=== PATIENT | male | born 1990 | race Caucasian/White ===

== ENCOUNTER 2016-04-03 17:07 | Emergency (ER) | payer SELFPAY ==
[2016-04-03 17:17] VITALS: BP 122/69
[2016-04-03] MEDS ORDERED: IBUPROFEN 800 MG TABLET PO ONE (17:33)
--- NOTE | 2016-04-03 17:33 | ER Document Report ---
ED Medical Screen (RME) - General Stated Complaint: FELL/LEG AND BACK PAIN Mode of Arrival: Ambulatory Information source: Patient Notes: Patient reports right knee has been giving out over the past week. Patient states that knee gave out causing him to fall on the staircase. Patient complains of right knee and right lateral hip pain. TRAVEL OUTSIDE OF THE [place] IN LAST 30 DAYS: No - Related Data Allergies/Adverse Reactions: cefaclor [From Ceclor] Allergy (Verified 04/03/16 17:32) Shellfish * [Shellfish] Allergy (Verified 04/03/16 17:32) tramadol [Tramadol] Allergy (Verified 04/03/16 17:32) Past Medical History Neurological Medical History: Reports: Hx Migraine, Hx Seizures Renal/ Medical History: Reports: Hx Kidney Stones Musculoskeltal Medical History: Reports Hx Musculoskeletal Trauma Psychiatric Medical History: Reports: Hx Attention Deficit Hyperactivity Disorder, Hx Bipolar Disorder Traumatic Medical History: Reports: Hx Fractures Past Surgical History: Reports: Hx Oral Surgery - Immunizations Immunizations up to date: Yes Hx Diphtheria, Pertussis, Tetanus Vaccination: Yes Physical Exam - Vital signs Vitals: Temp Pulse Resp BP 98.1 F 67 18 122/69 04/03/16 17:16 04/03/16 17:16 04/03/16 17:16 04/03/16 17:16 - Extremities General lower extremity: Tender - Right lateral knee, right hip Course - Vital Signs Vital signs: Temp Pulse Resp BP Pulse Ox 98.1 F 67 18 122/69 04/03/16 17:16 04/03/16 17:16 04/03/16 17:16 04/03/16 17:16
--- NOTE | 2016-04-03 19:00 | ER Document Report ---
ED Extremity Problem, Lower - General Chief Complaint: Knee Pain Stated Complaint: FELL/LEG AND BACK PAIN Mode of Arrival: Ambulatory Notes: Patient is having pain in his right knee and right hip after a fall today. Patient says he has "always" had problems with his right knee. He was having such problems as of feeling or sensation of grinding in the knee joint and had an MRI done about 7 years ago but was told that it didn't show any abnormality. He continues to have times when his right knee doesn't feel stable. Today, walking down some steps, his right knee gave out and he fell hitting on the right knee. At the time of impact, pain went up his right thigh into the right hip causing pain there. Since the fall, patient is having pain in the right knee and the right hip and has a limping gait. TRAVEL OUTSIDE OF THE [place] 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 Family History: Arthritis, CAD, CVA, DM, Hyperlipidemia, Hypertension, Malignancy Patient has suicidal ideation: No Patient has homicidal ideation: No Neurological Medical History: Reports: Hx Migraine, Hx Seizures Renal/ Medical History: Reports: Hx Kidney Stones Musculoskeltal Medical History: Reports Hx Musculoskeletal Trauma Psychiatric Medical History: Reports: Hx Attention Deficit Hyperactivity Disorder, Hx Bipolar Disorder Traumatic Medical History: Reports: Hx Fractures Past Surgical History: Reports: Hx Oral Surgery - Immunizations Immunizations up to date: Yes Hx Diphtheria, Pertussis, Tetanus Vaccination: Yes Review of Systems - Review of Systems Notes: REVIEW OF SYSTEMS: CONSTITUTIONAL : Denies fever. EENT: Denies eye, ear, nose or mouth or throat pain or other symptoms. CARDIOVASCULAR: Denies chest pain. RESPIRATORY: Denies cough, chest congestion, or shortness of breath. GASTROINTESTINAL: Denies abdominal pain or nausea, vomiting, or diarrhea. GENITOURINARY: Denies difficulty or painful urinating, urinary frequency, blood in urine. MUSCULOSKELETAL: Denies back or neck pain. See history of present illness regarding right hip pain and right knee pain. SKIN: Denies rash or skin lesions. NEUROLOGICAL: Denies LOC or altered mental status. Denies sensory loss or motor deficits. ALL OTHER SYSTEMS REVIEWED AND NEGATIVE. Physical Exam - Vital signs Vitals: Temp Pulse Resp BP 98.1 F 67 18 122/69 04/03/16 17:16 04/03/16 17:16 04/03/16 17:16 04/03/16 17:16 Interpretation: Normal - Notes Notes: PHYSICAL EXAMINATION: GENERAL: Well-appearing, in no acute distress. Vital signs are normal. Gait is with a limp. HEAD: Atraumatic, normocephalic. NECK: Normal range of motion, supple. LUNGS: Breath sounds clear and equal bilaterally. HEART: Regular rate and rhythm without murmurs. ABDOMEN: Soft, nontender. No guarding or rebound. BACK: No tenderness throughout entire back. EXTREMITIES: Full range of motion of the right hip and right knee passively. No swelling or effusion present. Tender to palpate in the region of the femoral head in the right hip socket and also tender to palpate over the lateral aspect of the right knee, which is where the patient says the point of maximum impact was in the fall today. All 4 major ligamentous structures are intact without significant laxity. Not very tender over the region of the medial or lateral meniscus. NEUROLOGICAL: Normal speech. Walks with a limping gait apparently due to pain. Normal sensory, motor, and reflex exams. Awake, alert, and oriented x3. PSYCH: Normal mood, normal affect. SKIN: Warm, dry, no rashes. Course - Vital Signs Vital signs: Temp Pulse Resp BP Pulse Ox 98.1 F 67 18 122/69 04/03/16 17:16 04/03/16 17:16 04/03/16 17:16 04/03/16 17:16 Discharge - Discharge Clinical Impression: Contusion of right knee Qualifiers: Encounter type: initial encounter Qualified Code(s): S80.01XA - Contusion of right knee, initial encounter Strain of muscle of right hip Qualifiers: Encounter type: initial encounter Qualified Code(s): S76.011A - Strain of muscle, fascia and tendon of right hip, initial encounter Condition: Stable Disposition: HOME, SELF-CARE Additional Instructions: MUSCLE STRAIN right hip: You have strained a muscle -- torn the fibers within the muscle. This often occurs with strenuous exertion, or during an injury that suddenly stretches the muscle. The seriousness of a strain varies. Some strains heal within days, others cause problems for months. X-rays cannot show a muscle strain. X-rays are taken only if symptoms suggest that a fracture could be present. The usual treatment of a muscle strain is rest and ice packs. Sometimes, a sling, splint, or crutches may be necessary to rest the muscle. The muscle can be used again once pain subsides. Severe strains require a special exercise and stretching program to prevent permanent stiffness and disability. Your doctor will advise you if this will be necessary. Call the doctor immediately if pain or swelling becomes severe, or if numbness or discoloration develop. CONTUSION of right knee: Your injury has resulted in a contusion -- a crushing of the deep tissues. No injury to important structures was detected during the physician's exam. Contusions vary in the amount of pain they cause, and in the length of time required for healing. Typically, the area will become bruised, and will remain painful to touch for two or three weeks. However, most patients are back to working and playing within a few days. After the initial period of rest and cold-packs, your symptoms (together with the doctor's recommendations) will determine how rapidly you can get back to full activity. Usually this means "do what feels okay, but don't do things that hurt." If re-examination was recommended, it's important to follow up as instructed. Call the doctor or return any time if pain increases, if swelling becomes severe, if you develop numbness or weakness in an injured extremity, or if any other alarming symptoms occur. SUSPECTED INTERNAL KNEE INJURY: The examiner of your injured knee suspects an internal injury to the cartilage or internal ligaments. This must be further investigated by an investigation specialist. The knee should be protected, ice packed, and elevated while awaiting your follow-up exam by the orthopedist. If there is severe swelling, severe pain, or any new symptoms while awaiting your exam, you should call the orthopedist. (If he/she is unavailable, call us or return for re-examination.) ICE PACKS: Apply ice packs frequently against the painful area. Many different schedules are recommended, such as "20 minutes on, 20 minutes off" or "one hour ice, two hours rest." If you need to work, you may need to go longer between ice treatments. You should plan to have the area ice packed AT LEAST one fourth of the time. The ice should be applied over the wrap, tape, or splint, or over a layer of cloth -- not directly against the skin. Some ice bags have a built-in cloth and can be put directly on the skin. USE OF CRUTCHES: The doctor has recommended that you not bear weight at this time. You will need to use crutches. Adjust the crutches so the tops come to about two inches under the armpit while you are standing upright. Use your hands -- not your armpits -- to support your weight. To get into a chair, support yourself with one crutch on the injured side. Hold the chair with the other hand, then lower yourself while putting all your weight on the good leg. Going up stairs is `good leg up, step up, then bring up crutches and bad leg.' Down stairs is `bad leg and crutches down, then bring good leg down.' If you develop numbness or swelling in an arm or hand, you are using the crutches incorrectly. Return if you are having any problems with the crutches. USE OF UDIQ-HQS-HYLPENA IBUPROFEN: Ibuprofen (Advil, Nuprin, Medipren, Motrin IB) is a medication for fever and pain control. In addition, it has anti- inflammatory effects which may be beneficial, especially in the treatment of injuries. It's best to take ibuprofen with food. Persons with ulcer disease or allergy to aspirin should notify their physician of this before taking ibuprofen. Ibuprofen can be given every four to six hours, for a total of four doses daily. Age Pain or fever dose Antiinflammatory dose 15-adult 400 mg (2 tab) 600 mg (3 tab) ORAL NARCOTIC MEDICATION: You have been given a prescription for pain control. This medication is a narcotic. It's best taken with food, as nausea can result if taken on an empty stomach. Don't operate machinery or drive within six hours of taking this medication. Do not combine this medicine with alcohol, or with any medication which can cause sedation (such as cold tablets or sleeping pills) unless you get permission from the physician. Narcotics tend to cause constipation. If possible, drink plenty of fluids and eat a diet high in fiber and fruits. FOLLOW-UP CARE: If you have been referred to a physician for follow-up care, call the physician s office for an appointment as you were instructed or within the next two days. If you experience worsening or a significant change in your symptoms, notify the physician immediately or return to the Emergency Department at any time for re-evaluation. Prescriptions: Oxycodone HCl/Acetaminophen [Percocet 5-325 mg Tablet] 1 - 2 tab PO Q4H PRN #15 tablet PRN Reason: Referrals: POWER KEATING MD [ACTIVE STAFF] - Follow up in 3-5 days
== END 2016-04-03 19:11 | disposition home or self-care (01) ==
LOC: ER 17:07
DX: S80.01XA Contusion of right knee, initial encounter (principal); S76.011A Strain of muscle, fascia and tendon of right hip, initial encounter; M25.561 Pain in right knee; M25.551 Pain in right hip; W19.XXXA Unspecified fall, initial encounter
CPT/HCPCS: 99283

== ENCOUNTER 2016-06-11 08:49 | Emergency (ER) | payer SELFPAY ==
[2016-06-11 08:57] VITALS: BP 110/60
--- NOTE | 2016-06-11 10:19 | ER Document Report ---
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 No radiculopathy. No saddle anesthesia. No fever or chills. Denies IV drug use. Hurts more when he sits and walks. He works at [employer]. Associated Symptoms: None Exacerbated by: Movement, Walking Relieved by: Denies Similar symptoms previously: Yes Recently seen / treated by doctor: No - ROS ROS below otherwise negative: Yes Systems Reviewed and Negative: Yes All other systems reviewed and negative - REPRODUCTIVE Reproductive: DENIES: : - DERM Skin Color: Normal Past Medical History - General Information source: Patient - Social History Smoking Status: Current Every Day Smoker Chew tobacco use (# tins/day): Yes Frequency of alcohol use: None Drug Abuse: None Lives with: Family Family History: Arthritis, CAD, CVA, DM, Hyperlipidemia, Hypertension, Malignancy Patient has suicidal ideation: No Patient has homicidal ideation: No Neurological Medical History: Reports: Hx Migraine, Hx Seizures Renal/ Medical History: Reports: Hx Kidney Stones. Denies: Hx Peritoneal Dialysis Musculoskeltal Medical History: Reports Hx Musculoskeletal Trauma Psychiatric Medical History: Reports: Hx Attention Deficit Hyperactivity Disorder, Hx Bipolar Disorder Traumatic Medical History: Reports: Hx Fractures Past Surgical History: Reports: Hx Oral Surgery - Immunizations Immunizations up to date: Yes Hx Diphtheria, Pertussis, Tetanus Vaccination: Yes Vertical Provider Document - CONSTITUTIONAL Agree With Documented VS: Yes Exam Limitations: No Limitations - INFECTION CONTROL TRAVEL OUTSIDE OF THE [place] IN LAST 30 DAYS: No - HEENT HEENT: Normocephalic - NECK Neck: Supple - RESPIRATORY Respiratory: Breath Sounds Normal, No Respiratory Distress O2 Sat by Pulse Oximetry: 98 - CARDIOVASCULAR Cardiovascular: Regular Rate, Regular Rhythm - GI/ABDOMEN Gastrointestinal: Abdomen Soft, Abdomen Non-Tender, No Organomegaly - BACK Back: Normal Inspection. negative: CVA Tenderness-Right, CVA Tenderness-Left - MUSCULOSKELETAL/EXTREMETIES Musculoskeletal/Extremeties: MAEW, FROM, Tender - lower lumbar, sacrum - NEURO Level of Consciousness: Awake, Alert Motor/Sensory: No Motor Deficit, No Sensory Deficit Deep Tendon Reflexes: 2+ - Bilateral ankle and patellar - DERM Integumentary: Warm, Dry Course - Vital Signs Vital signs: Temp Pulse Resp BP Pulse Ox 97.4 F 57 L 18 110/60 98 06/11/16 08:56 06/11/16 08:56 06/11/16 08:56 06/11/16 08:56 06/11/16 08:56 Discharge - Discharge Clinical Impression: low back pain Low back strain Qualifiers: Encounter type: initial encounter Qualified Code(s): S39.012A - Strain of muscle, fascia and tendon of lower back, initial encounter Condition: Good Disposition: HOME, SELF-CARE Instructions: Warm Packs ([facility]), Muscle Strain ([facility]), Low Back Pain ([facility]), Anti- Inflammatory Medication ([facility]), Acetaminophen Additional Instructions: warm compress massage stretching exercises to er if worse Please complete the patient satisfaction survey if you get one, and return it.. If you do not receive a survey, then you can go to the [facility] website, [email or web address] and place your comments about your very good care. Thank you very much. It was a pleasure being your medical provider today. Prescriptions: Ibuprofen [Motrin 800 mg Tablet] 800 mg PO Q8HP PRN #30 tablet PRN Reason: Forms: Return to Work Referrals: HEATHER WOOD MD [Primary Care Provider] - Follow up as needed
== END 2016-06-11 10:36 | disposition home or self-care (01) ==
LOC: ER 08:49
DX: S39.012A Strain of muscle, fascia and tendon of lower back, initial encounter (principal); M54.5 Low back pain; F17.210 Nicotine dependence, cigarettes, uncomplicated; Z87.442 Personal history of urinary calculi; X50.0XXA Overexertion from strenuous movement or load, initial encounter
CPT/HCPCS: 99283

== ENCOUNTER 2016-07-16 18:47 | Emergency (ER) | payer SELFPAY | END 2016-07-16 19:28 | disposition left against medical advice (07) | LOC: ER 18:47 | DX: Z53.21 Procedure and treatment not carried out due to patient leaving prior to being seen by health care provider (principal) ==

== ENCOUNTER 2016-07-17 18:55 | Emergency (ER) | payer SELFPAY ==
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
[2016-07-17 21:04] VITALS: BP 130/89
== END 2016-07-17 21:00 | disposition home or self-care (01) ==
LOC: ER 18:55
DX: S20.211A Contusion of right front wall of thorax, initial encounter (principal); R07.81 Pleurodynia; W21.89XA Striking against or struck by other sports equipment, initial encounter; Y93.18 Activity, surfing, windsurfing and boogie boarding; F17.210 Nicotine dependence, cigarettes, uncomplicated
CPT/HCPCS: 99283

== ENCOUNTER 2016-08-20 08:33 | Emergency (ER) | payer SELFPAY ==
[2016-08-20 08:37] VITALS: BP 117/61
--- NOTE | 2016-08-20 09:41 | ER Document Report ---
HPI - HPI Patient complains to provider of: sunburn Onset: Other - saturday Quality of pain: Achy Severity: Mild Pain Level: 2 Context: Patient presents to the emergency department with complaints of sunburn to both legs anteriorly. He reports he was has had the sunburn since Saturday. It hurts so bad he cannot wear pants. He needs to wear pants go to work. 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 Denies: Hx Peritoneal Dialysis Musculoskeltal Medical History: Reports Hx Musculoskeletal Trauma Psychiatric Medical History: Reports: Hx Attention Deficit Hyperactivity Disorder, Hx Bipolar Disorder Traumatic Medical History: Reports: Hx Fractures Past Surgical History: Reports: Hx Oral Surgery - Immunizations Immunizations up to date: Yes Hx Diphtheria, Pertussis, Tetanus Vaccination: Yes Vertical Provider Document - CONSTITUTIONAL Agree With Documented VS: Yes Exam Limitations: No Limitations General Appearance: WD/WN, No Apparent Distress - INFECTION CONTROL TRAVEL OUTSIDE OF THE [place] IN LAST 30 DAYS: No - HEENT HEENT: Atraumatic. negative: Conjuctival Injection - NECK Neck: Normal Inspection, Supple - RESPIRATORY Respiratory: Breath Sounds Normal O2 Sat by Pulse Oximetry: 100 - MUSCULOSKELETAL/EXTREMETIES Musculoskeletal/Extremeties: MAEW, FROM, Tender - Sunburn pain to bilateral thighs anteriorly - NEURO Level of Consciousness: Awake, Alert, Appropriate Motor/Sensory: No Motor Deficit - DERM Integumentary: Warm, Dry Adult Front & Back Diagram: 1 - Edema noted to bilateral thighs no blisters no open wounds no swelling Course - Re-evaluation Re-evalutation: 08/20/16 15:11 Patient instructed on aloe cool packs Tylenol for pain. He was also instructed to follow-up with his primary care provider for recheck. - Vital Signs Vital signs: Temp Pulse Resp BP Pulse Ox 97.8 F 56 L 16 117/61 100 08/20/16 08:35 08/20/16 08:35 08/20/16 08:35 08/20/16 08:35 08/20/16 08:35 Discharge - Discharge Clinical Impression: Sunburn Condition: Serious Disposition: HOME, SELF-CARE Instructions: Sunburn ([facility]) Additional Instructions: *You have been treated for sunburn *Avoid sun, apply cool compresses *Monitor your skin for signs of infection such as increasing pain, redness, swelling, warmth *Follow up with a primary care provider within one week for recheck *Return to ED for signs of infection, worsening condition, changes, needs Forms: Return to Work Referrals: HEATHER WOOD MD [Primary Care Provider] - Follow up in 1 week
== END 2016-08-20 09:40 | disposition home or self-care (01) ==
LOC: ER 08:33
DX: L55.0 Sunburn of first degree (principal); R60.0 Localized edema; F17.210 Nicotine dependence, cigarettes, uncomplicated
CPT/HCPCS: 99282

== ENCOUNTER 2016-08-30 23:26 | Emergency (ER) | payer SELFPAY ==
[2016-08-31] MEDS ORDERED: PROMETHAZINE HCL 25 MG TABLET PO ONE (00:21)
[2016-08-31] MEDS ORDERED: LIDOCAINE 1%/EPINEPHRINE INJ 20 ML VIAL INJ ONE (00:21)
[2016-08-31] MEDS ORDERED: OXYCODONE-ACETAMINOPHEN 5-325 MG TABLET PO ONE (00:21)
--- NOTE | 2016-08-31 00:46 | ER Document Report ---
ED Skin Rash/Insect Bite/Abscs - General Chief Complaint: Abscess Stated Complaint: POSSIBLE INGROWN HAIR/INFECTED Time Seen by Provider: 08/31/16 00:14 Notes: Patient is a 26-year-old male comes emergency department for chief complaint of a painful red area on his left upper groin which has been there for 2 weeks, he states he picked off the head a few days ago but it has not resolved. He denies spreading redness, fever, he states he has had this in the past once before. He denies any daily medications. He denies any other symptoms. TRAVEL OUTSIDE OF THE [place] IN LAST 30 DAYS: No - Related Data Allergies/Adverse Reactions: cefaclor [From Ceclor] Allergy (Verified 08/20/16 08:35) Shellfish * [Shellfish] Allergy (Verified 08/20/16 08:35) tramadol [Tramadol] Allergy (Verified 08/20/16 08:35) Past Medical History - General Information source: Patient - Social History Smoking Status: Never Smoker Chew tobacco use (# tins/day): No Frequency of alcohol use: Occasional Drug Abuse: None Lives with: Family Family History: Arthritis, CAD, CVA, DM, Hyperlipidemia, Hypertension, Malignancy Neurological Medical History: Reports: Hx Migraine, Hx Seizures Renal/ Medical History: Reports: Hx Kidney Stones. Denies: Hx Peritoneal Dialysis Musculoskeltal Medical History: Reports Hx Musculoskeletal Trauma Psychiatric Medical History: Reports: Hx Attention Deficit Hyperactivity Disorder, Hx Bipolar Disorder Traumatic Medical History: Reports: Hx Fractures Past Surgical History: Reports: Hx Oral Surgery - Immunizations Immunizations up to date: Yes Hx Diphtheria, Pertussis, Tetanus Vaccination: Yes Review of Systems - Review of Systems Constitutional: No symptoms reported EENT: No symptoms reported Cardiovascular: No symptoms reported Respiratory: No symptoms reported Gastrointestinal: No symptoms reported Genitourinary: No symptoms reported Male Genitourinary: No symptoms reported Musculoskeletal: No symptoms reported Skin: See HPI Hematologic/Lymphatic: No symptoms reported Neurological/Psychological: No symptoms reported Physical Exam - Vital signs Vitals: Temp Pulse Resp BP Pulse Ox 97.8 F 56 L 20 119/61 97 08/30/16 23:35 08/30/16 23:35 08/30/16 23:35 08/30/16 23:35 08/30/16 23:35 Interpretation: Normal - General General appearance: Appears well, Alert - HEENT Head: Normocephalic, Atraumatic Eyes: Normal Pupils: PERRL - Respiratory Respiratory status: No respiratory distress Chest status: Nontender Breath sounds: Normal Chest palpation: Normal - Cardiovascular Rhythm: Regular Heart sounds: Normal auscultation Murmur: No - Abdominal Inspection: Normal Distension: No distension Bowel sounds: Normal Tenderness: Nontender Organomegaly: No organomegaly - Back Back: Normal, Nontender - Extremities General upper extremity: Normal inspection, Nontender, Normal color, Normal ROM , Normal temperature General lower extremity: Normal inspection, Nontender, Normal color, Normal ROM , Normal temperature, Normal weight bearing. No: Terence's sign - Neurological Neuro grossly intact: Yes Cognition: Normal Orientation: AAOx4 Zo Coma Scale Eye Opening: Spontaneous Zo Coma Scale Verbal: Oriented [place] Coma Scale Motor: Obeys Commands Zo Coma Scale Total: 15 Speech: Normal Motor strength normal: LUE, RUE, LLE, RLE Sensory: Normal - Psychological Associated symptoms: Normal affect, Normal mood - Skin Skin Temperature: Warm Skin Moisture: Dry Skin Color: Normal Skin irregularity: Abscess - There is an abscess in the left suprapubic area, there is a indurated surrounding area with a fluctuant middle head. Minimal surrounding cellulitis noted. Area appears to be coming out of a hair follicle. Course - Re-evaluation Re-evalutation: Exam consistent with folliculitis with secondary abscess and mild surrounding cellulitis. Abscess excised and drained, abscess actually very superficial but did have pus drainage. Patient placed on doxycycline because of folliculitis/ mild cellulitis. Discussed treatment, follow-up, return precautions. Patient states understanding and agreement. - Vital Signs Vital signs: Temp Pulse Resp BP Pulse Ox 97.8 F 50 L 18 115/53 L 97 08/30/16 23:35 08/31/16 02:01 08/31/16 02:01 08/31/16 02:01 08/31/16 02:01 Procedures - Incision and Drainage Left suprapubic area Type: Single Anesthetic type: 1% Lidocaine w/epi mL's of anesthetic: 5 Blade size: 11 I&D procedure: Shurclens applied, Sterile dressing applied Incision Method: Incision made by scalpel Amount/type of drainage: Small amount of purulent drainage Discharge - Discharge Clinical Impression: Abscess Condition: Stable Disposition: HOME, SELF-CARE Additional Instructions: The abscess has been opened to drain, keep absorbing dressing over the site, clean with soap and water at least daily, avoid soaking. \ Take the doxycycline antibiotic as directed (due to suspected folliculitis - hair follicle - infection). Follow up with Primary Care. Return to the ED for any concerning or worsening symptoms - spreading redness, fever, etc. Prescriptions: Doxycycline Hyclate 100 mg PO BID #10 capsule Oxycodone HCl/Acetaminophen [Percocet 5-325 mg Tablet] 1 - 2 tab PO Q4H PRN #10 tablet PRN Reason: Forms: Return to Work Referrals: HEATHER WOOD MD [Primary Care Provider] - Follow up as needed
[2016-08-31] MEDS ORDERED: HYDROCODONE/ACETAMINOPHEN 5-325 MG 6 TAB/DSPK PO PRN (01:32)
[2016-08-31 02:03] VITALS: BP 115/53
== END 2016-08-31 01:50 | disposition home or self-care (01) ==
LOC: ER 23:26
PROC: 0H97XZZ Drainage of Abdomen Skin, External Approach (ICD-10-PCS; principal; 2016-08-30)
DX: L02.211 Cutaneous abscess of abdominal wall (principal); L03.311 Cellulitis of abdominal wall; Z88.1 Allergy status to other antibiotic agents; Z88.5 Allergy status to narcotic agent; Z91.013 Allergy to seafood
CPT/HCPCS: 10060; 99283; J3490

== ENCOUNTER 2017-03-01 14:43 | Emergency (ER) | payer SELFPAY ==
--- NOTE | 2017-03-01 15:35 | ER Document Report ---
HPI - HPI Pain Level: 2 Notes: Patient is a 26-year-old male with no significant past medical history who presents the ED complaining of nasal congestion/discharge and sore throat 1 day , dry nonproductive cough with intermittent wheeze and feeling feverish in the evenings 1-1/2 weeks. Patient states that he is still eating and drinking without difficulties. He is urinating normally and having normal bowel movements. Patient does admit to smoking but denies any IV drug use. He has no other concerns or complaints at this time. He is ambulatory without any worsening symptoms or dyspnea on exertion. Patient states that currently he has no wheezing or trouble breathing. Denies any headache, neck pain, chest pain, palpitations, syncope, shortness of breath, dyspnea, abdominal pain, nausea/vomiting/diarrhea, urinary retention, dysuria, hematuria, or rash. - ROS Notes: REVIEW OF SYSTEMS: CONSTITUTIONAL : see hpi EENT: see hpi CARDIOVASCULAR: Denies chest pain. Denies palpitations or racing or irregular heart beat. Denies ankle edema. RESPIRATORY: see hpi GASTROINTESTINAL: Denies abdominal pain or distention. Denies nausea, vomiting , or diarrhea. Denies blood in vomitus, stools, or per rectum. Denies black, tarry stools. Denies constipation. GENITOURINARY: Denies difficulty urinating, painful urination, burning, frequency, blood in urine, or discharge. MUSCULOSKELETAL: Denies back or neck pain or stiffness. Denies joint pain or swelling. SKIN: Denies rash, lesions or sores. NEUROLOGICAL: Denies dizziness or lightheadedness. Denies headache. Denies seizures. ALL OTHER SYSTEMS REVIEWED AND NEGATIVE. Dictation was performed using [employer] voice recognition software Past Medical History - Social History Smoking Status: Current Every Day Smoker Family History: Arthritis, CAD, CVA, DM, Hyperlipidemia, Hypertension, Malignancy Neurological Medical History: Reports: Hx Migraine, Hx Seizures Renal/ Medical History: Reports: Hx Kidney Stones. Denies: Hx Peritoneal Dialysis Musculoskeltal Medical History: Reports Hx Musculoskeletal Trauma Psychiatric Medical History: Reports: Hx Attention Deficit Hyperactivity Disorder, Hx Bipolar Disorder Traumatic Medical History: Reports: Hx Fractures Past Surgical History: Reports: Hx Oral Surgery - Immunizations Immunizations up to date: Yes Hx Diphtheria, Pertussis, Tetanus Vaccination: Yes Vertical Provider Document - CONSTITUTIONAL Agree With Documented VS: Yes Notes: PHYSICAL EXAMINATION: GENERAL: Well-appearing, well-nourished and in no acute distress. A&Ox4 HEAD: Atraumatic, normocephalic. EYES: Pupils equal round and reactive to light, extraocular movements intact, sclera anicteric, conjunctiva are normal. ENT: EAC clear b/l. TM's intact b/l without erythema, fluid, or perforation. Nares patent and with clear discharge. oropharynx clear without exudates. No tonsilar hypertrophy or erythema. Moist mucous membranes. No sinus tenderness. Uvula midline. No palatine shift. No tongue protrusion. No airway compromise or drooling. NECK: Normal range of motion, supple without lymphadenopathy. No rigidity/ meningismus. LUNGS: Breath sounds clear to auscultation bilaterally and equal. No wheezes rales or rhonchi. HEART: Regular rate and rhythm without murmurs, rubs, gallops. Extremities: No cyanosis, clubbing, or edema b/l. Peripheral pulses 2+. Capillary refill less than 3 seconds. NEUROLOGICAL: Cranial nerves grossly intact. Normal speech, normal gait. Normal sensory, motor exams PSYCH: Normal mood, normal affect. SKIN: Warm, Dry, normal turgor, no rashes or lesions noted. - INFECTION CONTROL TRAVEL OUTSIDE OF THE [place] IN LAST 30 DAYS: No - RESPIRATORY O2 Sat by Pulse Oximetry: 98 Course - Re-evaluation Re-evalutation: 03/01/17 16:15 Patient is an afebrile, well-hydrated, 26-year-old male who presents the ED with acute URI and cough, suspect viral at this time. Vitals are stable. PE is otherwise unremarkable. Chest x-ray was unremarkable for any acute pathology. Influenza was negative. No other imaging or labs warranted at this time based on H&P. Patient's clinical presentation and risk factors are otherwise low risk and benign at this time. Low suspicion for any ACS, PE, pneumothorax, pericarditis, dissection, respiratory compromise, severe dehydration, sepsis, meningitis, or other systemic emergent condition at this time. Patient is aware that his condition can change from initial presentation and he needs to monitor symptoms closely and seek medical attention for any acute changes. I will send him home with a pocket prescription for Zithromax that he may begin with ongoing worsening symptoms 2-3 days. Recommend conservative measures for symptoms. Recheck with your PCM in 3-5 days. Return to the ED with any worsening/concerning symptoms otherwise as reviewed in discharge. Patient is in agreement. - Vital Signs Vital signs: Temp Pulse Resp BP Pulse Ox 98.8 F 65 18 123/71 98 03/01/17 14:47 03/01/17 14:47 03/01/17 14:47 03/01/17 14:47 03/01/17 14:47 Discharge - Discharge Clinical Impression: Acute URI Condition: Stable Disposition: HOME, SELF-CARE Instructions: Upper Respiratory Illness ([facility]) Additional Instructions: Maintain adequate fluid intake Take meds as directed--may being antibiotic with ongoing/worsening symptoms x2- 3 days tylenol/ibuprofen as needed over the counter cold medication as needed for symptoms Humidified air may help for cough F/u: with your PCM in 3-5 days for a recheck Return to the ED with any fever, worsening pain, chest pain, palpitations, syncope, worsening PATEL, neck pain/stiffness, shortness of breath, wheezing, drooling, trouble swallowing/breathing, abdominal pain, n/v/d, rash, or worsening/concerning symptoms otherwise. Prescriptions: Azithromycin [Zithromax 250 mg Tablet] 250 mg PO ASDIR PRN #6 tablet PRN Reason: Forms: Smoking Cessation Education Referrals: [facility] [Provider Group] - Follow up as needed [facility] [Provider Group] - Follow up as needed
--- NOTE | 2017-03-01 15:46 | RADIOLOGY REPORT (SQ) ---
EXAM DESCRIPTION: CHEST PA/LAT COMPLETED DATE/TIME: 03/01/2017 3:34 pm REASON FOR STUDY: cough COMPARISON: 02/08/2010 EXAM PARAMETERS: NUMBER OF VIEWS: two views TECHNIQUE: Digital Frontal and Lateral radiographic views of the chest acquired. RADIATION DOSE: NA LIMITATIONS: none FINDINGS: LUNGS AND PLEURA: No opacities, masses or pneumothorax. No pleural effusion. MEDIASTINUM AND HILAR STRUCTURES: No masses or contour abnormalities. HEART AND VASCULAR STRUCTURES: Heart normal size. No evidence for failure. BONES: No acute findings. HARDWARE: None in the chest. OTHER: No other significant finding. IMPRESSION: NO SIGNIFICANT RADIOGRAPHIC FINDING IN THE CHEST. TECHNICAL DOCUMENTATION: JOB ID: [id number] [employer]- All Rights Reserved
[2017-03-01 16:44] VITALS: BP 108/60
== END 2017-03-01 16:40 | disposition home or self-care (01) ==
LOC: ER 14:43
DX: J06.9 Acute upper respiratory infection, unspecified (principal); R09.81 Nasal congestion; J02.9 Acute pharyngitis, unspecified; R05 Cough; R50.9 Fever, unspecified
CPT/HCPCS: 71020; 87804; 99283

== ENCOUNTER 2017-03-10 14:01 | Emergency (ER) | payer SELFPAY ==
[2017-03-10] MEDS ORDERED: ACYCLOVIR 200 MG CAPSULE PO ONE ×2 (14:44→15:30)
--- NOTE | 2017-03-10 14:47 | ER Document Report ---
ED ENT - General Chief Complaint: Allergy Symptoms Stated Complaint: POSSIBLE ALLERGIC REACTION Time Seen by Provider: 03/10/17 14:36 Mode of Arrival: Ambulatory Information source: Patient Notes: 26-year-old male presents to ED for pain and swelling to the side of his lip. He states he might be having allergic reaction to something. He states he has never had this before it kind of ruiz and itches. He states his face is a little bit swollen this morning but now it is not he took some Tylenol and Benadryl. He states he did have chickenpox as a child but has never had a blister on his mouth before TRAVEL OUTSIDE OF THE [place] IN LAST 30 DAYS: No - HPI Patient complains to provider of: Other - MrJacinda to the left side of his mouth Onset: This morning Onset/Duration: Gradual - Woke up with a blister on his mouth with swelling and pain Quality of pain: Other - Burning itching Severity: Mild Pain Level: 2 Context: Other Location of pain: Other - lip sore Associated symptoms: Other - Listed to the left side of the lip and to the crack between the upper and lower lip Similar symptoms previously: No Recently seen / treated by doctor: Yes - Related Data Allergies/Adverse Reactions: cefaclor [From Ceclor] Allergy (Verified 03/10/17 14:04) Shellfish * [Shellfish] Allergy (Verified 03/10/17 14:04) tramadol [Tramadol] Allergy (Verified 03/10/17 14:04) Past Medical History - General Information source: Patient - Social History Smoking Status: Current Every Day Smoker Cigarette use (# per day): Yes - Half pack per day Chew tobacco use (# tins/day): No Smoking Education Provided: Yes Frequency of alcohol use: None Drug Abuse: None Occupation: None Lives with: Parents Family History: Arthritis, CAD, COPD, CVA, DM, Hyperlipidemia, Hypertension, Malignancy Patient has suicidal ideation: No Patient has homicidal ideation: No - Past Medical History Cardiac Medical History: Reports: None Pulmonary Medical History: Reports: Hx Bronchitis, Hx Pneumonia EENT Medical History: Reports: None Neurological Medical History: Reports: Hx Migraine Endocrine Medical History: Reports: None Renal/ Medical History: Reports: Hx Kidney Stones Malignancy Medical History: Reports None GI Medical History: Reports: None Musculoskeltal Medical History: Reports Hx Musculoskeletal Trauma Skin Medical History: Reports None Psychiatric Medical History: Reports: Hx Attention Deficit Hyperactivity Disorder, Hx Bipolar Disorder Traumatic Medical History: Reports: Hx Fractures - Right hand left hand left wrist left thumb ribs Infectious Medical History: Reports: None Past Surgical History: Reports: Hx Oral Surgery - Immunizations Immunizations up to date: Yes Hx Diphtheria, Pertussis, Tetanus Vaccination: Yes Review of Systems - Review of Systems Constitutional: No symptoms reported EENT: Other - Herpes lesion to left side of lower lip and cracked between the upper and lower lip Cardiovascular: No symptoms reported Respiratory: No symptoms reported Gastrointestinal: No symptoms reported Genitourinary: No symptoms reported Male Genitourinary: No symptoms reported Musculoskeletal: No symptoms reported Skin: No symptoms reported Hematologic/Lymphatic: No symptoms reported Neurological/Psychological: No symptoms reported -: Yes All other systems reviewed and negative Physical Exam - Vital signs Vitals: Temp Pulse Resp BP Pulse Ox 98.6 F 68 18 128/69 H 100 03/10/17 14:07 03/10/17 14:07 03/10/17 14:07 03/10/17 14:07 03/10/17 14:07 Interpretation: Normal - General General appearance: Appears well, Alert - HEENT Head: Normocephalic, Atraumatic Eyes: Normal Pupils: PERRL Ears: Normal External canal: Normal Tympanic membrane: Normal Sinus: Normal Nasal: Normal Mouth/Lips: Lesions - Left lower lip Mucous membranes: Normal Pharynx: Normal Neck: Normal - Respiratory Respiratory status: No respiratory distress Chest status: Nontender Breath sounds: Normal Chest palpation: Normal - Cardiovascular Rhythm: Regular Heart sounds: Normal auscultation Murmur: No - Abdominal Inspection: Normal Distension: No distension Bowel sounds: Normal Tenderness: Nontender Organomegaly: No organomegaly - Back Back: Normal, Nontender - Extremities General upper extremity: Normal inspection, Nontender, Normal color, Normal ROM , Normal temperature General lower extremity: Normal inspection, Nontender, Normal color, Normal ROM , Normal temperature, Normal weight bearing. No: Terence's sign - Neurological Neuro grossly intact: Yes Cognition: Normal Orientation: AAOx4 Zo Coma Scale Eye Opening: Spontaneous [place] Coma Scale Verbal: Oriented [place] Coma Scale Motor: Obeys Commands [place] Coma Scale Total: 15 Speech: Normal Motor strength normal: LUE, RUE, LLE, RLE Sensory: Normal - Psychological Associated symptoms: Normal affect, Normal mood - Skin Skin Temperature: Warm Skin Moisture: Dry Skin Color: Normal Course - Re-evaluation Re-evalutation: 03/10/17 14:57 Patient was treated with 800 mg and acyclovir in the emergency room for his new onset herpes simplex to the left lower lip. He was also instructed to use Abreva for the pain and discomfort. And to follow-up with his primary doctor. - Vital Signs Vital signs: Temp Pulse Resp BP Pulse Ox 98.6 F 68 18 128/69 H 100 03/10/17 14:07 03/10/17 14:07 03/10/17 14:07 03/10/17 14:07 03/10/17 14:07 Discharge - Discharge Clinical Impression: Herpes labialis HTN (hypertension) Qualifiers: Hypertension type: unspecified Qualified Code(s): I10 - Essential (primary) hypertension Condition: Stable Disposition: HOME, SELF-CARE Instructions: Family Physicians / Practices Additional Instructions: Herpes Simplex You have been diagnosed as having a herpes virus infection. The herpes ( "cold sore") virus usually infects the areas around the mouth. However, it can cause infection on any skin surface. It's particularly dangerous if infection occurs in the eye. On the initial infection, herpes blisters erupt over a large area. There is usually fever and aching. This infection takes about 14 days to resolve. After the initial infection, herpes sores can erupt on small areas (usually the lips), then heal in about a week. Sunburn, fever, local irritation, or even emotions can provoke a "fever blister" attack of herpes. Initial herpes infections can be treated with medication if severe. Subsequent attacks are usually given only local care to reduce symptoms; however , the physician may decide to prescribe anti-viral medication if your case warrants it. Call the doctor if you are worsening in any way. Acyclovir Acyclovir (Zovirax) is used to treat infections caused by the Herpes family of viruses. It's available as capsules or ointment. Zovirax is most effective if started at the first sign of the viral outbreak. It can decrease the severity and duration of symptoms. However, it doesn't eliminate the virus from the body completely. If you're prone to repeated outbreaks of herpes, you'll continue to have attacks. Apply ointment with a disposable glove or finger-cot to avoid spreading the virus with your finger. If pills have been prescribed, take them for the full recommended course. Occasionally, mild nausea or headaches may occur. Call the doctor if you develop wheezing, itching, rash, shortness of breath , or lightheadedness. Carmex fever blister ointment or Abreva either one will help with the discomfort. Do not pick at this area do not rub your tongue over it do not touch it. FOLLOW-UP CARE: If you have been referred to a physician for follow-up care, call the physician s office for an appointment as you were instructed or within the next two days. If you experience worsening or a significant change in your symptoms, notify the physician immediately or return to the Emergency Department at any time for re-evaluation. Forms: Elevated Blood Pressure, Smoking Cessation Education
[2017-03-10 15:25] VITALS: BP 127/69
== END 2017-03-10 15:20 | disposition home or self-care (01) ==
LOC: ER 14:01
DX: B00.1 Herpesviral vesicular dermatitis (principal); I10 Essential (primary) hypertension; R22.0 Localized swelling, mass and lump, head; F17.200 Nicotine dependence, unspecified, uncomplicated
CPT/HCPCS: 99283

== ENCOUNTER 2017-08-15 13:20 | Emergency (ER) | payer SELFPAY ==
[2017-08-15] MEDS ORDERED: IBUPROFEN 800 MG TABLET PO ONE (13:48)
[2017-08-15] MEDS ORDERED: PSEUDOEPHEDRINE HCL 30 MG TABLET PO ONE (13:49)
--- NOTE | 2017-08-15 13:51 | ER Document Report ---
HPI - HPI Patient complains to provider of: cough Onset: Other - 5 days Onset/Duration: Persistent Pain Level: 0 Context: Patient reports having a cough for the past 5 days. Patient reports a fever of 102.7 today. Patient denies taking any antipyretic medication today. Patient does complain of cough, sore throat and congestion. Patient states that after his symptoms started he called a telemedicine provider 4 days ago and was placed on a [employer]. Patient has finished a [employer] and complains of continued symptoms. Associated Symptoms: Nonproductive cough, Fever, Rhinnorhea, Sore throat. denies: Earache, Headache, Vomiting Exacerbated by: Denies Relieved by: Denies Similar symptoms previously: No Recently seen / treated by doctor: Yes - ROS ROS below otherwise negative: Yes Systems Reviewed and Negative: Yes All other systems reviewed and negative - CONSTITUTIONAL Constitutional: REPORTS: Fever - EENT EENT: REPORTS: Sore Throat, Nasal Drainage-Clear, Congestion - CARDIOVASCULAR Cardiovascular: DENIES: Chest pain - RESPIRATORY Respiratory: REPORTS: Coughing. DENIES: Trouble Breathing - GASTROINTESTINAL Gastrointestinal: DENIES: Patient vomiting, Diarrhea - MUSCULOSKELETAL Musculoskeletal: DENIES: Back Pain, Neck Pain - DERM Skin Color: Normal Skin Problems: None Past Medical History - General Information source: Patient - Social History Smoking Status: Current Every Day Smoker Smoking Education Provided: Yes Frequency of alcohol use: None Drug Abuse: None Occupation: [employer] Lives with: Family Family History: Arthritis, CAD, COPD, CVA, DM, Hyperlipidemia, Hypertension, Malignancy Pulmonary Medical History: Reports: Hx Bronchitis, Hx Pneumonia Neurological Medical History: Reports: Hx Migraine Renal/ Medical History: Reports: Hx Kidney Stones. Denies: Hx Peritoneal Dialysis Musculoskeltal Medical History: Reports Hx Musculoskeletal Trauma Psychiatric Medical History: Reports: Hx Attention Deficit Hyperactivity Disorder, Hx Bipolar Disorder Traumatic Medical History: Reports: Hx Fractures - Right hand left hand left wrist left thumb ribs Past Surgical History: Reports: Hx Oral Surgery - Immunizations Immunizations up to date: Yes Hx Diphtheria, Pertussis, Tetanus Vaccination: Yes Vertical Provider Document - CONSTITUTIONAL Agree With Documented VS: Yes Exam Limitations: No Limitations General Appearance: WD/WN, No Apparent Distress - INFECTION CONTROL TRAVEL OUTSIDE OF THE [place] IN LAST 30 DAYS: No - HEENT HEENT: Atraumatic, Normocephalic, Pharyngeal Tenderness, Pharyngeal Erythema. negative: Pharyngeal Exudate, Tympanic Membrane Red, Tympanic Membrane Bulging Notes: Clear rhinorrhea, swollen nasal mucosa - NECK Neck: Normal Inspection, Supple. negative: Lymphadenopathy-Left, Lymphadenopathy-Right - RESPIRATORY Respiratory: No Respiratory Distress, Chest Non-Tender, Rhonchi - CARDIOVASCULAR Cardiovascular: Regular Rate, Regular Rhythm, No Murmur - GI/ABDOMEN Gastrointestinal: Abdomen Soft - BACK Back: Normal Inspection - MUSCULOSKELETAL/EXTREMETIES Musculoskeletal/Extremeties: ERICA JARRETT - NEURO Level of Consciousness: Awake, Alert, Appropriate Motor/Sensory: No Motor Deficit - DERM Integumentary: Warm, Dry, No Rash Course - Re-evaluation Re-evalutation: 08/15/17 Respirations even and unlabored, no tachypnea. Patient without any findings concerning for pneumonia on chest x-ray, patient afebrile here. Strep test negative. Patient encouraged to follow-up with primary doctor for further evaluation. Discussed worsening symptoms that patient should return immediately for. - Vital Signs Vital signs: Temp Pulse Resp BP Pulse Ox 99.5 F 89 20 133/79 H 95 08/15/17 13:23 08/15/17 13:23 08/15/17 13:23 08/15/17 13:23 08/15/17 13:23 - Laboratory Laboratory results interpreted by me: 08/15/17 14:48 Labs- Entire Visit 08/15/17 13:57 Group A Strep Rapid NEGATIVE - Diagnostic Test Radiology reviewed: Reports reviewed Discharge - Discharge Clinical Impression: Sore throat Upper respiratory infection Qualifiers: URI type: unspecified URI Qualified Code(s): J06.9 - Acute upper respiratory infection, unspecified Condition: Stable Disposition: HOME, SELF-CARE Instructions: Upper Respiratory Illness ([facility]) Additional Instructions: Return immediately for any new or worsening symptoms Followup with your primary care provider, call tomorrow to make a followup appointment Prescriptions: Albuterol Sulfate [Ventolin Hfa] 2 puff IH Q4HP PRN #17 gm PRN Reason: Guaifenesin/Pseudoephedrne HCl [Mucinex D ER Tablet] 1 each PO Q12 PRN #12 tab.er.12h PRN Reason: Naproxen [Naprosyn 250 Nmg Tablet] 1 tab PO BID #14 tablet Forms: Smoking Cessation Education, Return to Work Referrals: HEATHER WOOD MD [ACTIVE STAFF] - Follow up tomorrow
--- NOTE | 2017-08-15 14:32 | RADIOLOGY REPORT (SQ) ---
EXAM DESCRIPTION: CHEST 2 VIEWS COMPLETED DATE/TIME: 08/15/2017 2:15 pm REASON FOR STUDY: fever, cough COMPARISON: 03/01/2017 EXAM PARAMETERS: NUMBER OF VIEWS: two views TECHNIQUE: Digital Frontal and Lateral radiographic views of the chest acquired. RADIATION DOSE: NA LIMITATIONS: none FINDINGS: LUNGS AND PLEURA: No opacities, masses or pneumothorax. No pleural effusion. MEDIASTINUM AND HILAR STRUCTURES: No masses or contour abnormalities. HEART AND VASCULAR STRUCTURES: Heart normal size. No evidence for failure. BONES: No acute findings. HARDWARE: None in the chest. OTHER: No other significant finding. IMPRESSION: NO ACUTE RADIOGRAPHIC FINDING IN THE CHEST. TECHNICAL DOCUMENTATION: JOB ID: [id number] [employer]- All Rights Reserved Reading location - IP/workstation name: [email or web address]
[2017-08-15 15:01] VITALS: BP 120/77
== END 2017-08-15 15:01 | disposition home or self-care (01) ==
LOC: ER 13:20
DX: J06.9 Acute upper respiratory infection, unspecified (principal); J02.9 Acute pharyngitis, unspecified; R05 Cough; R50.9 Fever, unspecified; J34.89 Other specified disorders of nose and nasal sinuses; F17.200 Nicotine dependence, unspecified, uncomplicated; Z87.01 Personal history of pneumonia (recurrent)
CPT/HCPCS: 71046; 87070; 87077; 87880; 99284

== ENCOUNTER 2017-09-27 00:59 | Emergency (ER) | payer OTHER ==
--- NOTE | 2017-09-27 01:56 | RADIOLOGY REPORT (SQ) ---
EXAM DESCRIPTION: XR FOREARM 2 VIEWS COMPLETED DATE/TME: 09/27/2017 01:08 CLINICAL HISTORY: 27 years, Male, fell caught self with handand caring 250 lbs COMPARISON: None. FINDINGS: 2 views of the right forearm. No acute fracture or dislocation. Normal osseous mineralization. No radiopaque foreign bodies. IMPRESSION: No acute fracture or dislocation. 2010 [facility] [employer]- All Rights Reserved
--- NOTE | 2017-09-27 01:58 | RADIOLOGY REPORT (SQ) ---
EXAM DESCRIPTION: XR HAND 3 OR MORE VIEWS COMPLETED DATE/TME: 09/27/2017 01:08 CLINICAL HISTORY: 27 years, Male, fell caught self with handand caring 250 lbs COMPARISON: None. FINDINGS: 3 views of the right hand. No acute fracture or dislocation. Normal osseous mineralization. No radiopaque foreign bodies. IMPRESSION: No acute fracture or dislocation. 2011 [facility] [employer]- All Rights Reserved
--- NOTE | 2017-09-27 01:58 | RADIOLOGY REPORT (SQ) ---
EXAM DESCRIPTION: XR WRIST 3 OR MORE VIEWS BILATERAL COMPLETED DATE/TME: 09/27/2017 01:08 CLINICAL HISTORY: 27 years, Male, fell caught self with handand caring 250 lbs COMPARISON: 11/24/2011 FINDINGS: 3 views of the right wrist. No acute fracture or dislocation. Normal osseous mineralization. No radiopaque foreign bodies. The radius, capitate, lunate have normal alignment. IMPRESSION: No acute fracture or dislocation. 2010 [employer]- All Rights Reserved
[2017-09-27] MEDS ORDERED: IBUPROFEN 600 MG TABLET PO ONE (02:19)
[2017-09-27] MEDS ORDERED: HYDROCODONE/ACETAMINOPHEN 5-325 MG (6 TAB/ER DISP) PO PRN (02:25)
--- NOTE | 2017-09-27 02:30 | ER Document Report ---
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 Patient has not taken any medications. Patient denies any other complaints. TRAVEL OUTSIDE OF THE [place] IN LAST 30 DAYS: No - Related Data Allergies/Adverse Reactions: cefaclor [From Ceclor] Allergy (Verified 08/15/17 13:21) Shellfish * [Shellfish] Allergy (Verified 08/15/17 13:21) tramadol [Tramadol] Allergy (Verified 08/15/17 13:21) Past Medical History - General Information source: Patient - Social History Smoking Status: Never Smoker Frequency of alcohol use: None Drug Abuse: None Lives with: Family Family History: Arthritis, CAD, COPD, CVA, DM, Hyperlipidemia, Hypertension, Malignancy Patient has suicidal ideation: No Patient has homicidal ideation: No Pulmonary Medical History: Reports: Hx Bronchitis, Hx Pneumonia Neurological Medical History: Reports: Hx Migraine, Hx Seizures Renal/ Medical History: Reports: Hx Kidney Stones. Denies: Hx Peritoneal Dialysis Musculoskeletal Medical History: Reports Hx Musculoskeletal Trauma Psychiatric Medical History: Reports: Hx Attention Deficit Hyperactivity Disorder, Hx Bipolar Disorder Traumatic Medical History: Reports: Hx Fractures - Right hand left hand left wrist left thumb ribs Past Surgical History: Reports: Hx Oral Surgery - Immunizations Immunizations up to date: Yes Hx Diphtheria, Pertussis, Tetanus Vaccination: Yes Review of Systems - Review of Systems Constitutional: No symptoms reported EENT: No symptoms reported Cardiovascular: No symptoms reported Respiratory: No symptoms reported Gastrointestinal: No symptoms reported Genitourinary: No symptoms reported Male Genitourinary: No symptoms reported Musculoskeletal: See HPI Skin: No symptoms reported Hematologic/Lymphatic: No symptoms reported Neurological/Psychological: No symptoms reported Physical Exam - Vital signs Vitals: Temp Pulse Resp BP Pulse Ox 98.2 F 51 L 18 118/76 100 09/27/17 01:00 09/27/17 01:00 09/27/17 01:00 09/27/17 01:00 09/27/17 01:00 - Notes Notes: PHYSICAL EXAMINATION: GENERAL: Well-appearing, well-nourished and in no acute distress. HEAD: Atraumatic, normocephalic. EYES: Pupils equal round and reactive to light, extraocular movements intact, sclera anicteric, conjunctiva are normal. LUNGS: Breath sounds clear to auscultation bilaterally and equal. No wheezes rales or rhonchi. HEART: Regular rate and rhythm without murmurs EXTREMITIES: Swelling noted to right wrist, tenderness with movement. Pulses present and bounding, cap refill less than 3 seconds, normal motor and sensation. NEUROLOGICAL: No focal neurological deficits. Moves all extremities spontaneously and on command. PSYCH: Normal mood, normal affect. SKIN: Warm, Dry, normal turgor, no rashes or lesions noted. Course - Re-evaluation Re-evalutation: Right wrist xray is negative for any acute findings. Physical exam consistent with wrist sprain. Will place patient in wrist splint and arm sling for comfort. Patient will follow up with workman comp provider. Instructed to ice , elevate and take ibuprofen for pain. Return for any further concerns. - Vital Signs Vital signs: Temp Pulse Resp BP Pulse Ox 97.3 F 58 L 17 118/77 96 09/27/17 02:37 09/27/17 02:37 09/27/17 02:37 09/27/17 02:37 09/27/17 02:37 Discharge - Discharge Clinical Impression: Wrist injury Qualifiers: Encounter type: initial encounter Laterality: right Qualified Code(s): S69.91XA - Unspecified injury of right wrist, hand and finger(s), initial encounter Condition: Stable Disposition: HOME, SELF-CARE Additional Instructions: SPRAIN: Your injury is a sprain. A sprain results from stretching or tearing of the ligaments, usually from a twisting injury. The ligaments will require time and protection in order to heal properly. Many sprains are quite disabling and should be taken seriously. The usual initial treatment of sprains is cold packs, elevation, and rest of the injured area. Your physician has assessed the seriousness of your ligament injury, and has outlined a treatment plan. Understand that this treatment may change, depending on how you progress. If a re-examination was recommended, it is important that you follow up as instructed. Call the doctor any time if there is severe pain, numbness, or loss of function in the injured area. ICE & ELEVATION: Apply ice packs frequently against the painful area. Many different schedules are recommended, such as "20 minutes on, 20 minutes off" or "one hour ice, two hours rest." If you need to work, you may need to go longer between ice treatments. You should plan to have the area ice packed AT LEAST one- fourth of the time. The ice should be applied over the wrap, tape, or splint, or over a layer of cloth -- not directly against the skin. Some ice bags have a built-in cloth and can be put directly on the skin. Your injured part should be elevated as much as possible over the next 48 hours. Try to keep the injury above the level of the heart. Avoid use of the injured area. Elevation and rest will decrease the swelling. USE OF [id number] IBUPROFEN: Ibuprofen (Advil, Nuprin, Medipren, Motrin IB) is a medication for fever and pain control. In addition, it has anti- inflammatory effects which may be beneficial, especially in the treatment of injuries. It's best to take ibuprofen with food. Persons with ulcer disease or allergy to aspirin should notify their physician of this before taking ibuprofen. Ibuprofen can be given every four to six hours, for a total of four doses daily. Take ibuprofen 600 mg every 6 hours for the next 2-3 days regardless if you have pain. This will help reduce the inflammation at the area of injury. ORAL NARCOTIC MEDICATION: You have been given a prescription for pain control. This medication is a narcotic. It's best taken with food, as nausea can result if taken on an empty stomach. Don't operate machinery or drive within six hours of taking this medication. Do not combine this medicine with alcohol, or with any medication which can cause sedation (such as cold tablets or sleeping pills) unless you get permission from the physician. Narcotics tend to cause constipation. If possible, drink plenty of fluids and eat a diet high in fiber and fruits. Please be aware that prescription narcotics also have the potential for abuse. People become addicted to these medications because of the general sense of wellbeing that they induce. This feeling along with a significant reduction in tension, anxiety, and aggression provides a stimulating seductive quality to these drugs. Once your pain is under control, we encourage you to discard your unused narcotics. FOLLOW-UP CARE: If you have been referred to a physician for follow-up care, call the physician s office for an appointment as you were instructed or within the next two days. If you experience worsening or a significant change in your symptoms, notify the physician immediately or return to the Emergency Department at any time for re-evaluation. Your x-rays today were normal and had no acute fractures. You most likely suffered a strain. Please follow-up with your Workmen's Comp. provider for official clearance back to work. Prescriptions: Ibuprofen 600 mg PO QID #30 tablet Forms: Special Work Note
[2017-09-27 02:45] VITALS: BP 118/77
== END 2017-09-27 02:42 | disposition home or self-care (01) ==
LOC: ER 00:59
DX: S69.91XA Unspecified injury of right wrist, hand and finger(s), initial encounter (principal); M25.531 Pain in right wrist; Z91.013 Allergy to seafood; Z88.8 Allergy status to other drugs, medicaments and biological substances; Z87.442 Personal history of urinary calculi; W19.XXXA Unspecified fall, initial encounter; Y93.89 Activity, other specified; Y92.89 Other specified places as the place of occurrence of the external cause; Y99.9 Unspecified external cause status
CPT/HCPCS: 73090; 73130; 73110; L3908; 99283; L3650

== ENCOUNTER 2018-02-23 18:54 | Emergency (ER) | payer SELFPAY ==
--- NOTE | 2018-02-23 20:07 | ER Document Report ---
HPI - HPI Patient complains to provider of: cough, fever Time Seen by Provider: 02/23/18 19:37 Pain Level: 1 Context: Patient is a 27-year-old male who comes to the emergency department for chief complaint of cough, runny nose, fever. He states symptoms started 3 days ago. He states cough is getting worse and he has 2 episodes today where he coughed until he vomited. He does smoke. He denies hemoptysis, hematemesis, he denies sputum production outside of the vomiting. He denies headache, painful sinuses , neck pain or stiffness, purulent nasal discharge, sore throat. He has not had influenza vaccine this year. He denies any daily prescribed medications. He states he has been exposed to sick people at work. - NEURO Neurology: REPORTS: Headache - RESPIRATORY Respiratory: REPORTS: Coughing Past Medical History - General Information source: Patient - Social History Smoking Status: Current Every Day Smoker Smoking Education Provided: Yes - <3 min Drug Abuse: None Lives with: Spouse/Significant other Family History: Arthritis, CAD, COPD, CVA, DM, Hyperlipidemia, Hypertension, Malignancy Patient has suicidal ideation: No Patient has homicidal ideation: No Pulmonary Medical History: Reports: Hx Bronchitis, Hx Pneumonia Neurological Medical History: Reports: Hx Migraine, Hx Seizures Renal/ Medical History: Reports: Hx Kidney Stones. Denies: Hx Peritoneal Dialysis Musculoskeletal Medical History: Reports Hx Musculoskeletal Trauma Psychiatric Medical History: Reports: Hx Attention Deficit Hyperactivity Disorder, Hx Bipolar Disorder Traumatic Medical History: Reports: Hx Fractures - Right hand left hand left wrist left thumb ribs Past Surgical History: Reports: Hx Oral Surgery - Immunizations Immunizations up to date: Yes Hx Diphtheria, Pertussis, Tetanus Vaccination: Yes Vertical Provider Document - CONSTITUTIONAL General Appearance: WD/WN, No Apparent Distress - INFECTION CONTROL TRAVEL OUTSIDE OF THE [place] IN LAST 30 DAYS: No - HEENT HEENT: Atraumatic, Normocephalic. negative: Normal ENT Exam - Left tympanic membrane with erythema and loss of light reflex but no purulent effusion and no bulging. Minimal erythema of the posterior pharynx with patent airway and normal uvula. Unremarkable oropharyngeal exam otherwise. Unremarkable ENT exam otherwise including nontender sinuses. - NECK Neck: Normal Inspection. negative: Lymphadenopathy-Left, Lymphadenopathy-Right - RESPIRATORY Respiratory: Breath Sounds Normal, No Respiratory Distress. negative: Wheezing - No wheezing, tachypnea, labored breathing - CARDIOVASCULAR Cardiovascular: Regular Rate, Regular Rhythm - GI/ABDOMEN Gastrointestinal: Abdomen Soft, Abdomen Non-Tender - BACK Back: Normal Inspection - MUSCULOSKELETAL/EXTREMETIES Musculoskeletal/Extremeties: MAEW, FROM, Non-Tender - NEURO Level of Consciousness: Awake, Alert, Appropriate - DERM Integumentary: Warm, Dry, No Rash Course - Re-evaluation Re-evalutation: Chest x-ray does not show developing pneumonia. Influenza test is negative. Evaluation is most consistent with viral upper respiratory infection/ bronchitis. Patient is a smoker. Because of his reported worsening cough symptoms, after discussion decision was made to provide him with steroid treatment. Discussed that this could last for a while, discussed worsening symptoms to return for, discussed primary care follow-up, discussed smoking cessation. Patient states understanding and agreement. - Vital Signs Vital signs: Temp Pulse Resp BP Pulse Ox 98.5 F 65 20 127/80 H 96 02/23/18 19:02 02/23/18 19:02 02/23/18 19:02 02/23/18 19:02 02/23/18 19:02 Discharge - Discharge Clinical Impression: Cough, Sinus congestion Upper respiratory infection Qualifiers: URI type: unspecified URI Qualified Code(s): J06.9 - Acute upper respiratory infection, unspecified Condition: Stable Disposition: HOME, SELF-CARE Additional Instructions: Your chest x-ray does not show any concerning abnormality, your influenza test is negative. Your evaluation is consistent with bronchitis, he has a viral upper respiratory infection. Take prednisone as prescribed, stop smoking. Avoid carbohydrate foods while taking prednisone as this will cause weight gain. I recommend Flonase nasal spray, Sudafed nasal decongestant, you can do Mucinex for chest decongestion, you can take [id number] antihistamine such as Benadryl to help at night, Tylenol for pain, etc. Follow-up with primary care. Return if you worsen including spiking fever, difficulty breathing, or any other concerning worsening symptoms. Prescriptions: Prednisone [Deltasone 20 mg Tablet] 2 tab PO DAILY 5 Days #10 tablet Forms: Return to Work
--- NOTE | 2018-02-23 20:21 | RADIOLOGY REPORT (SQ) ---
EXAM DESCRIPTION: CHEST 2 VIEWS COMPLETED DATE/TIME: 02/23/2018 8:14 pm REASON FOR STUDY: fevers, worsening cough x3 days COMPARISON: 08/15/2017 EXAM PARAMETERS: NUMBER OF VIEWS: two views TECHNIQUE: Digital Frontal and Lateral radiographic views of the chest acquired. RADIATION DOSE: NA LIMITATIONS: none FINDINGS: LUNGS AND PLEURA: No opacities, masses or pneumothorax. No pleural effusion. MEDIASTINUM AND HILAR STRUCTURES: No masses or contour abnormalities. HEART AND VASCULAR STRUCTURES: Heart normal size. No evidence for failure. BONES: No acute findings. HARDWARE: None in the chest. OTHER: No other significant finding. IMPRESSION: NO ACUTE RADIOGRAPHIC FINDING IN THE CHEST. TECHNICAL DOCUMENTATION: JOB ID: [id number] [employer]- All Rights Reserved Reading location - IP/workstation name: [email or web address]
[2018-02-23 21:05] LABS: A TYPE INFLUENZA AG NEGATIVE (NEGATIVE); B INFLUENZA AG NEGATIVE (NEGATIVE)
[2018-02-23] MEDS ORDERED: PREDNISONE 20 MG TABLET PO ONE (21:20)
[2018-02-23 21:38] VITALS: BP 124/76
== END 2018-02-23 21:38 | disposition home or self-care (01) ==
LOC: ER 18:54
DX: J06.9 Acute upper respiratory infection, unspecified (principal); R05 Cough; R09.81 Nasal congestion; R50.9 Fever, unspecified; R09.89 Other specified symptoms and signs involving the circulatory and respiratory systems; R11.10 Vomiting, unspecified; F17.200 Nicotine dependence, unspecified, uncomplicated
CPT/HCPCS: 99284; 87804; 71046; J7512

== ENCOUNTER 2019-02-02 08:56 | Emergency (ER) | payer SELFPAY ==
[2019-02-02 09:01] VITALS: BP 123/64
[2019-02-02] MEDS ORDERED: IPRATROPIUM/ALBUTEROL 0.5-2.5 MG/3 ML AMPUL NEB ONE (09:13)
--- NOTE | 2019-02-02 09:14 | ER Document Report ---
HPI - HPI Time Seen by Provider: 02/02/19 09:08 Pain Level: Denies Context: Patient is a 28-year-old male who presents the emergency department with a chief complaint of a cough. Patient states that his cough started about a month ago. Patient states that the cough went away a little bit, but a few days ago he continued to have a cough and started to have a fever. Patient took Mucinex DM and almost passed out at work. Patient states that he is a current everyday smoker and smokes about a pack a day. - CONSTITUTIONAL Constitutional: DENIES: Fever, Chills - EENT EENT: REPORTS: Nasal Drainage-Clear, Nasal Drainage-Purulent, Congestion. DENIES: Sore Throat, Ear Pain, Eye problems - NEURO Neurology: DENIES: Headache - CARDIOVASCULAR Cardiovascular: DENIES: Chest pain - RESPIRATORY Respiratory: REPORTS: Coughing - GASTROINTESTINAL Gastrointestinal: DENIES: Abdominal Pain, Nausea, Patient vomiting - REPRODUCTIVE Reproductive: DENIES: : - DERM Skin Color: Normal Skin Problems: None Past Medical History - Social History Smoking Status: Current Every Day Smoker Chew tobacco use (# tins/day): No Frequency of alcohol use: None Drug Abuse: None Family History: Arthritis, CAD, COPD, CVA, DM, Hyperlipidemia, Hypertension, Malignancy Patient has suicidal ideation: No Patient has homicidal ideation: No Pulmonary Medical History: Reports: Hx Bronchitis, Hx Pneumonia Neurological Medical History: Reports: Hx Migraine, Hx Seizures Renal/ Medical History: Reports: Hx Kidney Stones. Denies: Hx Peritoneal Dialysis Musculoskeletal Medical History: Reports Hx Musculoskeletal Trauma Psychiatric Medical History: Reports: Hx Attention Deficit Hyperactivity Disorder, Hx Bipolar Disorder Traumatic Medical History: Reports: Hx Fractures - Right hand left hand left wrist left thumb ribs Past Surgical History: Reports: Hx Oral Surgery - Immunizations Immunizations up to date: Yes Hx Diphtheria, Pertussis, Tetanus Vaccination: Yes Vertical Provider Document - CONSTITUTIONAL Agree With Documented VS: Yes Exam Limitations: No Limitations General Appearance: No Apparent Distress - INFECTION CONTROL TRAVEL OUTSIDE OF THE [place] IN LAST 30 DAYS: No - HEENT HEENT: Atraumatic, Normocephalic, PERRLA. negative: Pharyngeal Tenderness, Pharyngeal Erythema, Tympanic Membrane Red, Tympanic Membrane Bulging - NECK Neck: Normal Inspection - RESPIRATORY Respiratory: Breath Sounds Normal, No Respiratory Distress - CARDIOVASCULAR Cardiovascular: Regular Rate, Regular Rhythm Pulses: Normal: Radial - MUSCULOSKELETAL/EXTREMETIES Musculoskeletal/Extremeties: FROM - NEURO Level of Consciousness: Awake, Alert, Appropriate Motor/Sensory: No Motor Deficit, No Sensory Deficit - DERM Integumentary: Warm, Dry, No Rash Course - Re-evaluation Re-evalutation: 02/02/19 10:00 X-ray shows chronic interstitial minor marking markings in the lungs, may be due to chronic smoking. No pneumonia noted. Patient's chest x-ray is negative for any acute findings as per radiologist. Patient's vital signs are stable. Very low suspicion for pneumonia, or any life-threatening etiology at this time. Patient will be sent home with an albuterol inhaler. I instructed him to make sure that he takes 4-6 1 to 2 puffs every 4-6 hours as needed. He will also be started on guaifenesin and cetirizine. He will follow-up with [facility] and or [facility]. He is in agreement with this plan. Follow-up precautions were given. Verbal discharge instructions were given to the patient. They verbalized understanding. They are stable for discharge. - Vital Signs Vital signs: Temp Pulse Resp BP Pulse Ox 98.4 F 55 L 20 123/64 95 02/02/19 09:00 02/02/19 09:00 02/02/19 09:00 02/02/19 09:00 02/02/19 09:00 Discharge - Discharge Clinical Impression: Cough Condition: Stable Disposition: HOME, SELF-CARE Additional Instructions: You are seen today in the emergency department for a cough. Chest her chest x- ray was normal. Please follow-up with 1 of the clinics below in regards to your cough. Please continue ibuprofen 600 mg and acetaminophen 1000 mg every 6 hours for any fever. Please continue guaifenesin. Make sure you get plenty of rest and drink plenty of fluids. Return if your symptoms are worse. You are being sent home with an albuterol inhaler. Take 1 puff every 4-6 hours as needed for shortness of breath. Prescriptions: Cetirizine HCl [All Day Allergy] 10 mg PO DAILY #30 tablet Guaifenesin [Mucinex] 1,200 mg PO BID #14 tab.[id number] Forms: Return to Work Referrals: [facility] [Provider Group] - Follow up as needed [facility] [Provider Group] - Follow up as needed
--- NOTE | 2019-02-02 09:40 | RADIOLOGY REPORT (SQ) ---
EXAM DESCRIPTION: CHEST 2 VIEWS COMPLETED DATE/TIME: 02/02/2019 9:27 am REASON FOR STUDY: cough/fever COMPARISON: 02/23/2018 and 08/15/2017 EXAM PARAMETERS: NUMBER OF VIEWS: two views TECHNIQUE: Digital Frontal and Lateral radiographic views of the chest acquired. RADIATION DOSE: NA LIMITATIONS: none FINDINGS: LUNGS AND PLEURA: Mild prominence of the interstitial markings in the lungs, appear to re present chronic findings. No acute pulmonary consolidation. No evidence of pneumothorax or pleural effusion. MEDIASTINUM AND HILAR STRUCTURES: No masses or contour abnormalities. HEART AND VASCULAR STRUCTURES: Heart normal size. No evidence for failure. BONES: No acute findings. HARDWARE: None in the chest. OTHER: No other significant finding. IMPRESSION: 1. As on the prior examinations dated 02/23/2018 and 08/15/2017, chronic mild prominence of the interstitial markings in the lungs. No acute pulmonary consolidation. TECHNICAL DOCUMENTATION: JOB ID: [id number] [employer]- All Rights Reserved Reading location - IP/workstation name: [email or web address]
[2019-02-02] MEDS ORDERED: ALBUTEROL SULFATE HFA (90 MCG/PUFF) 8 GM MDI (1 MDI/ER DISP) IH ONE (09:59)
[2019-02-02] MEDS ORDERED: CETIRIZINE 10 MG TABLET PO ONE (10:16)
[2019-02-02] MEDS ORDERED: GUAIFENESIN 600 MG TABLET.SA PO ONE (10:16)
== END 2019-02-02 10:27 | disposition home or self-care (01) ==
LOC: ER 08:56
DX: R05 Cough (principal); R50.9 Fever, unspecified; R55 Syncope and collapse; F17.210 Nicotine dependence, cigarettes, uncomplicated; Z87.442 Personal history of urinary calculi
CPT/HCPCS: 71046; J3490; J7620; 94640; 99283

== ENCOUNTER 2019-10-09 15:33 | Emergency (ER) | payer SELFPAY ==
[2019-10-09 15:41] VITALS: BP 118/67
--- NOTE | 2019-10-09 16:21 | RADIOLOGY REPORT (SQ) ---
EXAM DESCRIPTION: HAND RIGHT 3 VIEWS IMAGES COMPLETED DATE/TIME: 10/09/2019 4:11 pm REASON FOR STUDY: Slammed index finger in door COMPARISON: 09/27/2017. EXAM PARAMETERS: NUMBER OF VIEWS: Three views. TECHNIQUE: AP, lateral and oblique radiographic images acquired of the right hand. LIMITATIONS: None. FINDINGS: MINERALIZATION: Normal. BONES: No acute fracture or dislocation. No worrisome bone lesions. JOINTS: No effusions. SOFT TISSUES: No soft tissue swelling. No foreign body. OTHER: No other significant finding. IMPRESSION: NEGATIVE STUDY OF THE RIGHT HAND. NO RADIOGRAPHIC EVIDENCE OF ACUTE INJURY. TECHNICAL DOCUMENTATION: JOB ID: [id number] 2010 [employer]- All Rights Reserved Reading location - IP/workstation name: [email or web address]
--- NOTE | 2019-10-09 16:34 | ER Document Report ---
ED Hand/Wrist Injury - General Chief Complaint: Finger Injury Stated Complaint: RIGHT INDEX FINGER PAIN,SWELLING Time Seen by Provider: 10/09/19 15:56 Mode of Arrival: Ambulatory Information source: Patient Notes: Patient is a 29-year-old male comes emergency room complaining of having his right index finger shut in a door. Patient states it happened just about 12:28 PM today. He was closing the door and mistakenly got his right index finger caught between it and the door frame. Patient is here because he wants to make sure is not dislocated or broken. He does have full use of it according to patient and has good sensation. TRAVEL OUTSIDE OF THE [place] IN LAST 30 DAYS: No - HPI Injury to: Index finger Onset: Just prior to arrival Where: Home Timing: Constant, Still present Quality of pain: Achy Severity: Mild Pain Level: 2 Context: Crush - Related Data Allergies/Adverse Reactions: cefaclor [From Ceclor] Allergy (Verified 10/09/19 15:50) Shellfish * [Shellfish] Allergy (Verified 10/09/19 15:50) tramadol [Tramadol] Allergy (Verified 10/09/19 15:50) Past Medical History - General Information source: Patient - Social History Smoking Status: Never Smoker Chew tobacco use (# tins/day): No Frequency of alcohol use: None Drug Abuse: None Lives with: Family Family History: Arthritis, CAD, COPD, CVA, DM, Hyperlipidemia, Hypertension, Malignancy Patient has homicidal ideation: No Pulmonary Medical History: Reports: Hx Bronchitis, Hx Pneumonia Neurological Medical History: Reports: Hx Migraine, Hx Seizures Renal/ Medical History: Reports: Hx Kidney Stones. Denies: Hx Peritoneal Dialysis Musculoskeletal Medical History: Reports Hx Musculoskeletal Trauma Psychiatric Medical History: Reports: Hx Attention Deficit Hyperactivity Disorder, Hx Bipolar Disorder Traumatic Medical History: Reports: Hx Fractures - Right hand left hand left wrist left thumb ribs Past Surgical History: Reports: Hx Oral Surgery - Immunizations Immunizations up to date: Yes Hx Diphtheria, Pertussis, Tetanus Vaccination: Yes Review of Systems - Review of Systems Constitutional: No symptoms reported EENT: No symptoms reported Cardiovascular: No symptoms reported Respiratory: No symptoms reported Gastrointestinal: No symptoms reported Genitourinary: No symptoms reported Male Genitourinary: No symptoms reported Musculoskeletal: See HPI, Joint pain Skin: No symptoms reported Hematologic/Lymphatic: No symptoms reported Neurological/Psychological: No symptoms reported -: Yes All other systems reviewed and negative Physical Exam - Vital signs Vitals: Temp Pulse Resp BP Pulse Ox 98.6 F 56 L 18 118/67 99 10/09/19 15:40 10/09/19 15:40 10/09/19 15:40 10/09/19 15:40 10/09/19 15:40 Interpretation: Bradycardic - Notes Notes: PHYSICAL EXAMINATION: GENERAL: Well-appearing, well-nourished and in no acute distress. HEAD: Atraumatic, normocephalic. No wheezes rales or rhonchi. HEART: Bradycardic rate and rhythm without murmurs Musculoskeletal: Examination patient's area concern is his right index finger. Primarily at the PIP. Patient has some mild swelling circumferentially at that area. There is no sign of an abrasion or discoloration or ecchymosis. Patient has good cap refill in nailbeds of that right index finger. He has good flexion and extension but is mildly tender to palpate. NEUROLOGICAL: Normal speech, normal gait. Normal sensory, motor exams PSYCH: Normal mood, normal affect. SKIN: Warm, Dry, normal turgor, no rashes or lesions noted. Course - Re-evaluation Re-evalutation: 10/09/19 16:32 I have informed patient that his x-ray is negative for fracture dislocation. I have offered to place him in a finger splint however patient is refusing a finger splint at this time. - Vital Signs Vital signs: Temp Pulse Resp BP Pulse Ox 98.6 F 56 L 18 118/67 99 10/09/19 15:40 10/09/19 15:40 10/09/19 15:40 10/09/19 15:40 10/09/19 15:40 Discharge - Discharge Clinical Impression: Contusion of right index finger Qualifiers: Encounter type: initial encounter Damage to nail status: without damage Qualified Code(s): S60.021A - Contusion of right index finger without damage to nail, initial encounter Condition: Stable Disposition: HOME, SELF-CARE Instructions: Contusion ([facility]) Additional Instructions: Home and rest. Tylenol alternate with Motrin for aches and pains but Motrin will help with the inflammation the most. You can ice to the finger 3 times a day for the next couple of days only for a couple minutes at a time. Should you notice that you are unable to flex or extend it you should return to ER for reevaluation. At this time it appears that you have just bruised the joint space. I am giving them the orthopedist on-call today if for any reason the pain does not go away and feel it can be reevaluated then that would probably be our next step. Activity as tolerated. Forms: Return to Work Referrals: FIGUEROA SKINNER JR, DO [ACTIVE PROVISIONAL STAFF] - Follow up as needed
== END 2019-10-09 16:41 | disposition home or self-care (01) ==
LOC: ER 15:33
DX: S60.021A Contusion of right index finger without damage to nail, initial encounter (principal); M79.644 Pain in right finger(s); M79.89 Other specified soft tissue disorders; M25.50 Pain in unspecified joint; W23.0XXA Caught, crushed, jammed, or pinched between moving objects, initial encounter; Z88.8 Allergy status to other drugs, medicaments and biological substances
CPT/HCPCS: 99283

== ENCOUNTER 2019-12-24 16:09 | Emergency (ER) | payer SELFPAY ==
[2019-12-24 16:21] VITALS: BP 110/68
--- NOTE | 2019-12-24 16:56 | ER Document Report ---
HPI - HPI Patient complains to provider of: Jaw pain Time Seen by Provider: 12/24/19 16:47 Onset: Other - 2 days Onset/Duration: Persistent Quality of pain: Achy Pain Level: 1 Context: Patient complains of left lower jaw pain with swelling for the past 2 days. Patient denies any fever. Patient denies any current dental problems. Associated Symptoms: denies: Earache, Fever, Nausea, Vomiting Exacerbated by: Denies Relieved by: Denies Similar symptoms previously: No Recently seen / treated by doctor: No - ROS ROS below otherwise negative: Yes Systems Reviewed and Negative: Yes All other systems reviewed and negative - CONSTITUTIONAL Constitutional: DENIES: Fever, Chills - EENT EENT: DENIES: Sore Throat, Ear Pain, Eye problems Notes: Left jaw and gingival swelling - NEURO Neurology: DENIES: Headache - CARDIOVASCULAR Cardiovascular: DENIES: Chest pain - RESPIRATORY Respiratory: DENIES: Trouble Breathing, Coughing - GASTROINTESTINAL Gastrointestinal: DENIES: Nausea, Patient vomiting - DERM Skin Color: Normal Skin Problems: None Past Medical History - General Information source: Patient - Social History Smoking Status: Current Every Day Smoker Chew tobacco use (# tins/day): No Frequency of alcohol use: Occasional Drug Abuse: None 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 Denies: Hx Peritoneal Dialysis Musculoskeletal Medical History: Reports Hx Musculoskeletal Trauma Psychiatric Medical History: Reports: Hx Attention Deficit Hyperactivity Disorder, Hx Bipolar Disorder Traumatic Medical History: Reports: Hx Fractures - Right hand left hand left wrist left thumb ribs Past Surgical History: Reports: Hx Oral Surgery - Immunizations Immunizations up to date: Yes Hx Diphtheria, Pertussis, Tetanus Vaccination: Yes Vertical Provider Document - CONSTITUTIONAL Agree With Documented VS: Yes Exam Limitations: No Limitations General Appearance: WD/WN, No Apparent Distress - INFECTION CONTROL TRAVEL OUTSIDE OF THE [place] IN LAST 30 DAYS: No - HEENT HEENT: Atraumatic Mouth Diagram: 1 - Gingival tenderness, induration, no fluctuance, no drainable abscess, no trismus Notes: To the left mandibular area - NECK Neck: Normal Inspection, Supple. negative: Lymphadenopathy-Left, Lymphaden opathy-Right - RESPIRATORY Respiratory: Breath Sounds Normal, No Respiratory Distress - CARDIOVASCULAR Cardiovascular: Regular Rate, Regular Rhythm - BACK Back: Normal Inspection - MUSCULOSKELETAL/EXTREMETIES Musculoskeletal/Extremeties: MAEW - NEURO Level of Consciousness: Awake, Alert, Appropriate Motor/Sensory: No Motor Deficit - DERM Integumentary: Warm, Dry, No Rash Course - Re-evaluation Re-evalutation: 12/24/19 17:00 Patient with left lower jaw and gingival swelling, no drainable abscess, no trismus, no potential airway compromise. Patient encouraged to follow-up with a dental care provider for further management. - Vital Signs Vital signs: Temp Pulse Resp BP Pulse Ox 98.8 F 67 16 110/68 99 12/24/19 16:19 12/24/19 16:19 12/24/19 16:19 12/24/19 16:19 12/24/19 16:19 Discharge - Discharge Clinical Impression: Pain, dental Condition: Stable Disposition: HOME, SELF-CARE Instructions: Clindamycin ([facility]), Dentist, Oral Narcotic Medication ([facility]), Toothache ([facility]) Additional Instructions: Return immediately for any new or worsening symptoms Followup with your primary care provider, call tomorrow to make a followup appo intment Follow-up with your dental care provider, call tomorrow for an appointment Prescriptions: Acetaminophen with Codeine [Tylenol #3 Tablet] 1 each PO Q6HP PRN #10 tablet PRN Reason: Clindamycin HCl 300 mg PO TID #21 capsule Forms: Return to Work Referrals: [facility] [Provider Group] - Follow up as needed DENTISTRY [Provider Group] - Follow up as needed
== END 2019-12-24 16:52 | disposition home or self-care (01) ==
LOC: ER 16:09
DX: K08.89 Other specified disorders of teeth and supporting structures (principal); R22.0 Localized swelling, mass and lump, head; F17.200 Nicotine dependence, unspecified, uncomplicated
CPT/HCPCS: 99284